=== PATIENT | female | born 1985 | race Caucasian/White ===

== ENCOUNTER 2018-10-23 21:46 | Emergency (ER) | payer OTHER ==
[2018-10-23] MEDS: IBUPROFEN 600 MG TAB PO (23:18)
== END 2018-10-23 23:42 | disposition home or self-care (01) ==
LOC: FTE 21:46
DX: J04.0 Acute laryngitis (principal); H65.03 Acute serous otitis media, bilateral; J20.9 Acute bronchitis, unspecified
CPT/HCPCS: 99283; Z7502